=== PATIENT | female | born 1955 | race Caucasian/White ===

== ENCOUNTER 2016-09-09 20:25 | Emergency (ER) | payer OTHER ==
[~2016-09-09] VITALS: Ht 170.2 cm; Wt 81.8 kg
[2016-09-09 20:39] VITALS: BP 155/96; PULSE 95; RESP 16; O2SAT 98
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
[2016-09-09 23:40] VITALS: BP 138/75; PULSE 98; RESP 20; O2SAT 98
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
== END 2016-09-09 23:41 | disposition home or self-care (01) ==
LOC: SED 20:25
DX: S16.1XXA Strain of muscle, fascia and tendon at neck level, initial encounter (principal); R51 Headache; I10 Essential (primary) hypertension; V43.52XA Car driver injured in collision with other type car in traffic accident, initial encounter; Y93.89 Activity, other specified; Y99.8 Other external cause status; Y92.410 Unspecified street and highway as the place of occurrence of the external cause; Z88.5 Allergy status to narcotic agent